=== PATIENT | female | born 1980 | race Two or more races ===

== ENCOUNTER 2018-04-15 22:41 | Emergency (ER) | payer OTHER ==
[~2018-04-15] VITALS: Ht 152.4 cm; Wt 66.2 kg
[2018-04-16] MEDS ORDERED: URIN D.S. TABL1 EACH PO (08:40)
[2018-04-16] MEDS ORDERED: LEVAQUIN750 MG PO (08:40)
== END 2018-04-16 09:50 ==
LOC: ER 22:41
DX: N39.0 Urinary tract infection, site not specified (principal); N30.80 Other cystitis without hematuria